=== PATIENT | male | born 2000 ===

== ENCOUNTER → 2023-09-15 | Outpatient (CLI) | payer OTHER | END | disposition home or self-care (01) | LOC: SONOGRAMA 10:51 | PROVIDERS: ATTEND Pathology Anatomic Pathology & Clinical Pathology | DX: D34 Benign neoplasm of thyroid gland (principal); E07.9 Disorder of thyroid, unspecified ==

== ENCOUNTER 2023-12-22 07:15 | Inpatient (IN) | payer OTHER ==
[~2023-12-22] VITALS: Ht 182.9 cm; Wt 104.3 kg
[2023-12-22 09:30] LABS: HEMATOCRIT 42.8 % (39.0-48.0); HEMOGLOBIN 15.1 g/dL (13-16.00); MEAN CELL VOLUME 89.4 fL (80.0-100.00); MEAN CORPUSCULAR HEMOGLOBIN 31.4 pg (27.00-32.0); MEAN CORPUSCULAR HGB CONC 35.2 g/dl (32.0-36.0); PLATELET COUNT 241 K/uL (150-450); RED BLOOD COUNT 4.79 M/uL (4.00-6.00); RED CELL DISTRIBUTION WIDTH 12.9 % (11.5-14.5)
[2023-12-22 09:30] LABS: PH,URINE 5.5 (5.0-8.0); URINE APPEARANCE Clear; URINE BILIRRUBIN Negative (NEGATIVE); URINE BLOOD Negative; URINE COLOR Yellow; URINE GLUCOSE Negative (NEGATIVE); URINE LEUKOCYTE Negative; URINE NITRATE Negative; URINE PROTEIN Negative (NEGATIVE); URINE UROBILINOGEN 0.2 E.U./dl
[2023-12-22 09:32] LABS: URINE BACTERIA 51.6 uL (0.0-1933); URINE EPITHELIAL CELLS 2.9 uL (0.0-38.8); URINE RBC 3.1 uL (0.0-20.8)
[2023-12-22 09:52] LABS: PARTIAL THROMBOPLASTIN TIME 29.7 SECONDS (22.0-34.0); PROTHROMBIN TIME 10.5 SECONDS (9.0-11.5)
[2023-12-22 09:58] LABS: ALBUMIN 3.8 gm/dL (3.4-5.0); BILIRUBIN TOTAL 0.32 mg/dL (0.3-1.2); CALCIUM 9.6 mg/dL (8.5-10.1); CREATININE SERUM 0.83 mg/dL (0.70-1.30); GFR 115.85; GLOBULINA 3.5 G/DL (2.4-3.5); POTASSIUM 4.46 mEq/L (3.5-5.1); TOTAL PROTEIN 7.3 gm/dL (6.4-8.2)
[2023-12-29] MEDS ORDERED: DEXAMETHASONE SODIUM PHOSP/PF 10 MG/ML VIAL ONE (07:58)
[2023-12-29] MEDS ORDERED: DEXAMETHASONE SODIUM PHOSP/PF 10 MG/ML VIAL IV ONE (08:30)
[2023-12-29] MEDS ORDERED: hydrALAZINE HCL 20 MG VIAL ONE (09:24)
[2023-12-29] MEDS ORDERED: RINGERS SOLUTION,LACTATED 1,000 ML IV SCH (11:00)
[2023-12-29] MEDS ORDERED: ENALAPRILAT DIHYDRATE 1.25 MG/ML VIAL IV PRN (11:00)
[2023-12-29] MEDS ORDERED: ONDANSETRON HCL 2 MG/ML VIAL IV PRN (11:00)
[2023-12-29] MEDS ORDERED: ACETAMINOPHEN 500 MG GEL..CAP PO SCH (13:00)
[2023-12-29] MEDS ORDERED: LABETALOL HCL 100 MG/20 ML ML ONE (13:01)
[2023-12-29] MEDS ORDERED: TRAMADOL HCL 50 MG TABLET PO SCH (14:00)
[2023-12-29] MEDS ORDERED: CALCITRIOL 0.5 MCG CAPSULE PO SCH (17:00)
[2023-12-29] MEDS ORDERED: PANTOPRAZOLE SODIUM 40 MG/VIAL VIAL IV PUSH SCH (21:00)
[2023-12-29] MEDS ORDERED: Calcium Carbonate 1 TAB TABLET PO SCH ×2 (21:00)
[2023-12-30] MEDS ORDERED: LEVOTHYROXINE SODIUM 150 MCG TABLET PO SCH ×2 (06:00→09:00)
== END 2023-12-30 13:30 | disposition home or self-care (01) | DRG 627 ==
LOC: O/R 12-29 05:26 → SURH 12-29 07:00 → EDBD 12-29 07:15 → SURG 12-29 11:40
PROVIDERS: ADMIT Otolaryngology; ATTEND Otolaryngology
PROC: 0GTK0ZZ Resection of Thyroid Gland, Open Approach (ICD-10-PCS; principal; 2023-12-29 07:00)
DX: C73 Malignant neoplasm of thyroid gland (principal); Z20.822 Contact with and (suspected) exposure to COVID-19